=== PATIENT | female | born 1950 | race Caucasian/White ===

== ENCOUNTER 2017-11-19 08:22 | Emergency (ER) | payer MEDICARE, OTHER ==
[~2017-11-19] VITALS: Ht 157.5 cm; Wt 65.8 kg
--- OUTSIDE RECORDS SUMMARY | ~2017-11-19 | XMS | Clinical Summary ---
Demographics + + + | Address | [address] | | | [place] [address] | + + + | Home Phone | | + + + | Preferred Language | Unknown | + + + | Marital Status | | + + + | Confucianist Affiliation | 1061 | + + + | Race | Unknown | + + + | Ethnic Group | Unknown | + + + Author + + + | Author | [facility] | | | and [place] | + + + | Organization | [facility] | | | and [place] | + + + | Address | Unknown | + + + | Phone | Unavailable | + + + Support + + + + + | Name | Relationship | Address | Phone | + + + + + | Joon Deutsch | ECON | [address] | | | | | [place] | | | | | [address] | | + + + + + Care Team Providers + +------+ + | Care Neurodiagnostic Tech Name | Role | Phone | + +------+ + | Kevin Pappas MD | PP | | + +------+ + Allergies No Known Allergies Current Medications + + +-------+---------+------+------+-------+ | Prescription | Sig. | Disp. | Refills | Star | End | Statu | | | | | | t | Date | s | | | | | | Date | | | + + +-------+---------+------+------+-------+ | | Take 20-12.5 mg by | | | 12/02 | | Activ | | olmesartan-hydrochlo | mouth Daily. | | | 07/21 | | e | | rothiazide (BENICAR | | | | 12 | | | | HCT) 20-12.5 MG per | | | | | | | | tablet | | | | | | | + + +-------+---------+------+------+-------+ | verapamil (VERELAN | Take 180 mg by mouth | | | 12/02 | | Activ | | PM) 180 MG 24 hr | Daily. | | | 07/21 | | e | | capsule | | | | 12 | | | + + +-------+---------+------+------+-------+ | aspirin (ASPIRIN | Take 81 mg by mouth | | | 12/02 | | Activ | | ADULT LOW STRENGTH) | Daily. | | | 07/21 | | e | | 81 MG EC tablet | | | | 12 | | | + + +-------+---------+------+------+-------+ | levothyroxine | Take 50 mcg by mouth | | | 12/02 | | Activ | | (LEVOTHROID) 50 mcg | Daily. | | | 07/21 | | e | | tablet | | | | 12 | | | + + +-------+---------+------+------+-------+ Active Problems + + + | Problem | Noted Date | + + + | Carpal tunnel syndrome, bilateral | 07/01/2013 | + + + Social History + +-------+ +--------+------+ | Tobacco Use | Types | Packs/Day | Years | Date | | | | | Used | | + +-------+ +--------+------+ | Never Smoker | | | | | + +-------+ +--------+------+ + + + | Sex Assigned at | Date Recorded | | | | + + + | Not on file | | + + + Last Filed Vital Signs + + + + | Vital Sign | Reading | Time Taken | + + + + | Blood Pressure | 167/83 | 07/01/2013802 PDT | + + + + | Pulse | 67 | 07/01/2013802 PDT | + + + + | Temperature | - | - | + + + + | Respiratory Rate | - | - | + + + + | Oxygen Saturation | - | - | + + + + | Inhaled Oxygen | - | - | | Concentration | | | + + + + | Weight | 63.5 kg (140 lb) | 07/01/2013802 PDT | + + + + | Height | 157.5 cm (5' 2") | 07/01/2013802 PDT | + + + + | Body Mass Index | 25.61 | 07/01/2013802 PDT | + + + + Plan of Treatment + + + + + | Health Maintenance | Due Date | Last Done | Comments | + + + + + | Vaccine: | | | | | Dtap/Tdap/Td (1 - | 1 | | | | Tdap) | | | | + + + + + | Vaccine: | | | | | Pneumococcal 65+ | 7 | | | | Low/Medium Risk (1 | | | | | of 2 - PCV13) | | | | + + + + + | Vaccine: Influenza | | | | | (#1) | 8 | | | + + + + + Results Not on filefrom Last 3 Months Insurance + +--------+ +--------+ +---------+ | Payer | Benefi | Subscriber | Type | Phone | Address | | | t Plan | ID | | | | | | / | | | | | | | Group | | | | | + +--------+ +--------+ +---------+ | [employer] | SAIF | [id number] | [place] | [phone] | | | | WC | | [phone] | [phone] | | + +--------+ +--------+ +---------+ + +--------+ +--------+ + + | Guarantor Name | Accoun | Relation to | Date | Phone | Billing Address | | | t Type | Patient | of | | | | | | | | | | + +--------+ +--------+ + + | KATALINA DEUTSCH | Worker | Self | [birth year] | Work: | [address] | | | s Comp | | 1949 | [phone] | [place] | | | | | | [address] Home: | [address] | | | | | | | | | | | | | [phone] | | | | | | | [address] | | + +--------+ +--------+ + + | KATALINA DEUTSCH | Person | Self | [birth year] | Work: | [address] | | | al/[place] | | 1949 | [phone] | [place] | | | [place] | | | [address] Home: | [address] | | | | | | | | | | | | [phone] | | | | | | | [address] | | + +--------+ +--------+ + +
--- OUTSIDE RECORDS SUMMARY | ~2017-11-19 | XMS | Clinical Summary ---
Demographics + + + | Address | [address] | | | [place] [address] | + + + | Home Phone | | + + + | Preferred Language | Unknown | + + + | Marital Status | | + + + | Restorationism Affiliation | Unknown | + + + | Race | Unknown | + + + | Ethnic Group | Unknown | + + + Author + + + | Author | [facility] | + + + | Organization | [facility] | + + + | Address | Unknown | + + + | Phone | Unavailable | + + + Support + + +---------+ + | Name | Relationship | Address | Phone | + + +---------+ + | Dennis Deutsch | ECON | Unknown | | + + +---------+ + Care Team Providers + +------+ + | Care Customer Project Manager Name | Role | Phone | + +------+ + | Cristy Ibarra PA-C | PP | | + +------+ + Allergies Not on File Current Medications Not on file Active Problems Not on file Encounters +--------+ + + + + | Date | Type | Specialty | Care Team | Description | +--------+ + + + + | 09/25/ | Documentati | | León Larkin, | | | 2017 | on Only | | MD | | +--------+ + + + + from Last 3 Months Social History + +-------+ +--------+------+ | Tobacco Use | Types | Packs/Day | Years | Date | | | | | Used | | + +-------+ +--------+------+ | Never Assessed | | | | | + +-------+ +--------+------+ + + + | Sex Assigned at | Date Recorded | | | | + + + | Not on file | | + + + Plan of Treatment +--------+ + + + + | Date | Type | Specialty | Care Team | Description | +--------+ + + + + | 01/31/ | Initial | | León Larkin, | | | 2018 | consult | | MD [address] | | | | | | [place], | | | | | | [place] [address] | | | | | | [phone] | | | | | | | | +--------+ + + + + + + + + + | Health Maintenance | Due Date | Last Done | Comments | + + + + + | Vaccine: | | | | | Dtap/Tdap/Td (1 - | 1 | | | | Tdap) | | | | + + + + + | Breast Cancer | | | | | Screening | 2 | | | | (Mammogram) | | | | + + + + + | Colon Cancer | | | | | Screening | 2 | | | | (Colonoscopy) | | | | + + + + + | DEXA SCAN SCREENING | | | | | | 7 | | | + + + + [...] filefrom Last 3 Months Insurance + +--------+ +------+-------+ + | Payer | Benefi | Subscriber | Type | Phone | Address | | | t Plan | ID | | | | | | / | | | | | | | Group | | | | | + +--------+ +------+-------+ + | MEDICARE | MEDICA | [id number] | | | [address] | | | RE | | | | [place] [phone] | | | IP-OP | | | | | + +--------+ +------+-------+ + | O[employer] HE[employer] PLAN | ODS | [id number] | | | | | | HEALTH | | | | | | | PLAN | | | | | + +--------+ +------+-------+ + + +--------+ +--------+ + + | Guarantor Name | Accoun | Relation to | Date | Phone | Billing Address | | | t Type | Patient | of | | | | | | | | | | + +--------+ +--------+ + + | KATALINA DEUTSCH | Person | Self | [birth year] | Home: | [address] | | | [place] | | 2 | [phone] | [place] | | | [place] | | | [phone] | [phone] | + +--------+ +--------+ + +"
--- OUTSIDE RECORDS SUMMARY | ~2017-11-19 | XMS | Encounter Summary ---
Demographics + + + | Address | [address] | | | [place] [address] | + + + | Home Phone | | + + + | Preferred Language | Unknown | + + + | Marital Status | | + + + | Congregational Affiliation | Unknown | + + + | Race | Unknown | + + + | Ethnic Group | Unknown | + + + Author + + + | Author | [facility] | + + + | Organization | [facility] | + + + | Address | Unknown | + + + | Phone | Unavailable | + + + Support + + +---------+ + | Name | Relationship | Address | Phone | + + +---------+ + | Dennis Deutsch | ECON | Unknown | | + + +---------+ + Care Team Providers + +------+ + | Care Geochemical Manager Name | Role | Phone | + +------+ + | Cristy Ibarra PA-C | PCP | | + +------+ + Encounter Details +--------+ + + + + | Date | Type | Department | Care Team | Description | +--------+ + + + + | 09/25/ | Documentati | [facility] | León Larkin, | | | 2018 | on Only | [place] [facility] | [address] | | | | | [address] | [place], | | | | | [place] | [place] [address] | | | | | [address] | [phone] | | | | | [phone] | | | +--------+ + + + + Social History + +-------+ [...] on file | | + + + as of this encounter Plan of Treatment +--------+ + + + + | Date | Type | Specialty | Care Team | Description | +--------+ + + + + | 01/31/ | Initial | Cardiology | León Larkin, | | | 2017 | consult | | MD [address] | | | | | | [place], | | | | | | [place] [address] | | | | | | [phone] | | | | | | | | +--------+ + + + + as of this encounter Visit Diagnoses Not on filein this encounter"
--- OUTSIDE RECORDS SUMMARY | ~2017-11-19 | XMS | Encounter Summary ---
Demographics + + + | Address | [address] | | | [place] [address] | + + + | Home Phone | | + + + | Preferred Language | Unknown | + + + | Marital Status | | + + + | Jainism Affiliation | Unknown | + + + | Race | Unknown | + + + | Ethnic Group | Unknown | + + + Author + + + | Author | [facility] | + + + | Organization | [facility] | + + + | Address | Unknown | + + + | Phone | Unavailable | + + + Support + + +---------+ + | Name | Relationship | Address | Phone | + + +---------+ + | Dennis Deutsch | ECON | Unknown | | + + +---------+ + Care Team Providers + +------+ + | Care Laboratory Monitor Name | Role | Phone | + [...] [place], | | | | | [place] | [place] [address] | | | | | [address] | [phone] | | | | | [phone] | | | +--------+ + + + [...] | | | | | | [place] [address] | | | | | | [phone] | | | | | | | | +--------+ + + + + as of this encounter Visit Diagnoses Not on filein this encounter"
--- OUTSIDE RECORDS SUMMARY | ~2017-11-19 | XMS | Clinical Summary ---
Demographics + + + | Address | [address] | | | [place] [address] | + + + | Home Phone | | + + + | Preferred Language | Unknown | + + + | Marital Status | | + + + | Jew Affiliation | Unknown | + + + | Race | Unknown | + + + | Ethnic Group | Unknown | + + + Author + + + | Author | [facility] | + + + | Organization | [facility] | + + + | Address | Unknown | + + + | Phone | Unavailable | + + + Support + + +---------+ + | Name | Relationship | Address | Phone | + + +---------+ + | Denins Deutsch | ECON | Unknown | | + + +---------+ + Care Team Providers + +------+ + | Care Server Programmer Name | Role | Phone | + [...] | | | | | | [place] [address] | | | | | | [phone] | | | | | | | [...] +------+-------+ + | MEDICARE | MEDICA | [id number] | | | [address] | | | RE | | | | [place] [phone] | | | IP-OP | | | | | + +--------+ +------+-------+ + | ODS HEALTH PLAN | ODS | [id number] | | | | | | HEALTH [...] | | al/[place] | | 2 | [phone] | [place] | | | [place] | | | [address] | [phone] | + +--------+ +--------+ + +"
--- OUTSIDE RECORDS SUMMARY | ~2017-11-19 | XMS | Clinical Summary ---
Demographics + + + | Address | [address] | | | [place] [address] | + + + | Home Phone | | + + + | Preferred Language | Unknown | + + + | Marital Status | | + + + | Roman Catholic Affiliation | 1061 | + + + | Race | Unknown | + + + | Ethnic Group | Unknown | + + + Author + + + | Author | [facility] | | | and [place] | + + + | Organization | [facility] | | | and [place] | [...] [place] | | | | | [address] | | + + + + + Care Team Providers + +------+ + | Care Professional Employer Consultant Name | Role | Phone | + [...] | | + +--------+ +--------+ +---------+ | [employer] | SAIF | [id number] | [place] | [phone] | | | | WC | | [...] | s Comp | | 1949 | [phone] | [place] | | | | | | [address] Home: | [address] | | | | | | | | | | | | | [phone] | | | | | | | [address] | | + +--------+ +--------+ + + | KATALINA DEUTSCH | Person | Self | [birth year] | Work: | [address] | | | [place] | | 1949 | [phone] | [place] | | | [place] | | | [address] Home: | [address] | | | | | | | | | | | | | [phone] | | | | | | | [address] | | + +--------+ +--------+ + +
[~2017-11-19 08:22] MED LIST: ALREX5 ML OPTH; HYDROCHLOROTH12.5 MG PO; LEVOTHYROXINE75 MCG PO; LOSARTAN POTAS100 MG PO; VERAPAMIL ER180 MG PO; ZOLPIDEM TARTRAT5 MG PO
[2017-11-19] MEDS ORDERED: ASPIR 8181 MG PO (08:33)
[2017-11-19] MEDS ORDERED: RESTASIS1 DROP OD (08:33)
[2017-11-19] MEDS ORDERED: PREDNISONE20 MG PO (09:25)
== END 2017-11-19 09:45 | disposition home or self-care (01) ==
LOC: ED 08:22
DX: T63.441A Toxic effect of venom of bees, accidental (unintentional), initial encounter (principal); I10 Essential (primary) hypertension; Z79.82 Long term (current) use of aspirin; Z79.899 Other long term (current) drug therapy
CPT/HCPCS: 99282; J7512

== ENCOUNTER 2020-07-24 06:30 | Day surgery (SDC) | payer MEDICARE, OTHER ==
[~2020-07-24] VITALS: Ht 157.5 cm; Wt 63.6 kg
[~2020-07-24 06:30] MED LIST changes: +ASPIR 8181 MG PO; +PREDNISONE20 MG PO; +RESTASIS1 DROP OD
--- NOTE | 2020-07-24 08:18 | NUR ---
07/24/20 0818 Aishwarya Ramos 0815- PT ARRIVES TO PACU NONAROUSABLE TO NOXIOUS STIMULI WITH AN OPA IN PLACE. RESP EVEN AND UNLABORED. OXYGEN SAT HIGH 90'S TO 100% ON 8L VIA MASK. 0816- PT RESPONSIVE ON HER OWN. JOVANI SANON, RN INSTRUCTS PT TO OPEN HER MOUTH AND REMOVES THE OPA.
[2020-07-24] MEDS ORDERED: IBUPROFEN600 MG PO (08:35)
[2020-07-24] MEDS ORDERED: OXYCODON-ACETA1 EAC2 PO (08:35)
[2020-07-24] MEDS ORDERED: ACETAMINOPHEN500 MG PO (08:35)
--- NOTE | 2020-07-25 15:12 | EKG ---
[facility] [address] [facility] [place], [place] [address] Signed Normal sinus rhythm Normal ECG No previous ECGs available Confirmed by GUY LOVE DO ([id number]) on 07/25/2020 3:12:41 PM Electronically Signed By: GUY LOVE DO 07/25/20 1512 PATIENT NAME: KATALINA MARTIN Electrocardiogram DATE OF : 54 PHYSICIAN: GUY LOVE DO REPORT #: [id number] REPORT IS CONFIDENTIAL AND NOT TO BE RELEASED WITHOUT AUTHORIZATION
--- NOTE | 2020-07-26 12:21 | OR ---
[facility] [address] [place], [place] [address] Signed DATE OF OPERATION: 07/24/2020 SURGEON: Martha Collins MD PREOPERATIVE DIAGNOSIS: Recurrent right middle finger distal digital mucous retention cyst. POSTOPERATIVE DIAGNOSIS AND PROCEDURE: 1. Operative excision and ligation of stock of digital mucous cyst. 2. Rongeur excision of bony exostosis. 3. Application of fibrin glue. ANESTHESIA: Local with monitored anesthesia care, finger block of 0.25% Marcaine without epinephrine. INDICATION: This 70-year-old white woman is a patient of Dr. Andres Falk, who is noted to have a digital mucous retention cyst. She has no nail deformity. The area was likely corresponding to the distal interphalangeal joint. She underwent excision in the office setting under local anesthesia, but did have some issues of healing problem and has had somewhat of a recurrence. She is admitted to undergo definitive excision to include ligation of the stalk as the lesion likely emanated from the joint rather than the nail matrix. The risks of bleeding, infection, recurrent disease and of course, other complications including cosmetic deformity were reviewed with her and she understands and wished to proceed. FINDINGS: The skin had healed up quite well overall, though one could see where the recurrent digital mucous cyst was. A flap was used to elevate skin over the underlying problem and the cyst was excised. The stalk identified, ligated with 5-0 Vicryl and minimal bony exostosis excised with a rongeur. Fibrin glue was applied to the area as well. The flap was closed without problem. DESCRIPTION OF PROCEDURE: The patient was brought to the operating room, given intravenous sedation with full cardiopulmonary monitoring. The right hand including the middle finger was prepared with a Betadine-based solution. Preoperative antibiotic Ancef was given. A digital block was undertaken bilaterally in the midportion of the finger with 0.25% Marcaine without epinephrine. The finger was exsanguinated with a quarter-inch Esther up to and Electronically Signed By: MARTHA COLLINS MD 07/26/20 1221 PATIENT NAME: KATALINA MARTIN OPERATIVE REPORT DATE OF : 54 REPORT #: [id number] PHYSICIAN: MARTHA COLLINS MD PCP: ANDRES FALK MD REPORT IS CONFIDENTIAL AND NOT TO BE RELEASED WITHOUT AUTHORIZATION [facility] [address] [place] [id number] Signed beyond the middle joint and an additional segment of [place] used to apply tourniquet. The exsanguinating [place] was removed. A hockey-stick like flap was elevated on the radial side of the distal phalanx and the flap elevated sharply with a #15 blade. The underlying retention cyst was identified and dissected free circumferentially mindful of the lateral tendon inserts. The stalk was identified and was ligated with 5-0 Vicryl suture and transected. Palpation revealed some bony exostosis of the area, which were excised with rongeurs, mindful of position of the lateral tendon slips and avoid any injury to them. A small amount of electrocautery was used for venous bleeding within bone material. Tisseel (fibrin glue) was applied to the area. The flap was then secured with three separate interrupted 4-0 nylon suture. A Xeroform dressing was applied to the operative site and the tourniquet was removed showing no sign of bleeding. A tube gauze was applied as a splint and dressing. The patient was allowed to emerge from sedation, taken to the recovery room in good condition having suffered no complication. Sponge, needle, and instrument counts were reported as correct x3. Martha Collins MD /JAMESL /[id number] cc: Andres Falk MD Copies: ANDRES FALK MD ~ Electronically Signed By: MARTHA COLLINS MD 07/26/20 1221 PATIENT NAME: KATALINA MARTIN OPERATIVE REPORT DATE OF : 54 REPORT #: [id number] PHYSICIAN: MARTHA COLLINS MD PCP: ANDRES FALK MD REPORT IS CONFIDENTIAL AND NOT TO BE RELEASED WITHOUT AUTHORIZATION
== END 2020-07-24 09:05 | disposition home or self-care (01) ==
LOC: DS 06:30 → OPS 06:30
PROVIDERS: ATTEND Surgery
PROC: 0LB70ZZ Excision of Right Hand Tendon, Open Approach (ICD-10-PCS; principal; 2020-07-24 06:45)
DX: M25.841 Other specified joint disorders, right hand (principal); I10 Essential (primary) hypertension; E03.9 Hypothyroidism, unspecified; G89.29 Other chronic pain; M19.90 Unspecified osteoarthritis, unspecified site; M54.9 Dorsalgia, unspecified; Z79.890 Hormone replacement therapy; Z79.899 Other long term (current) drug therapy; Z20.822 Contact with and (suspected) exposure to COVID-19
CPT/HCPCS: 01830; 93005; 93010; J0690; J1100; J1885; J2250; J2405; J2704; J2765; J3010; J7121

== ENCOUNTER 2024-08-19 07:45 | Day surgery (SDC) | payer MEDICARE, OTHER ==
[~2024-08-19] VITALS: Ht 157.5 cm; Wt 63.6 kg
[~2024-08-19 07:45] MED LIST changes: +ACETAMINOPHEN500 MG PO; +CALCIUM 600-VI1 EAC3 PO; +CEFAZOLIN SODIUM 2 GM/20 ML SYR IV SCH; +CURCUMIN PHYTO500 MG PO; +FISH OIL 1,001000 MG PO; +IBLOOD GLUCOSE TEST STRIP 1 EA TEST VI PRN; +IBUPROFEN600 MG PO; +KETOROLAC TROMETHAMINE 30 MG/ML VIAL ONE; +LACTATED RINGER'S 1,000 ML IV SCH; +LIDOCAINE HCL 1% 5 ML SDV INJ ONE; +MAGNESIUM COMP300 MG PO; +MULTIVITAMIN1 EACH PO; +OXYCODON-ACETA1 EAC2 PO; +RESTASIS MULTI5.5 ML OU; -RESTASIS1 DROP OD; +RESTASIS1 DROP OU
[2024-08-19 08:07] VITALS: BP 141/60
[2024-08-19] MEDS ORDERED: fentaNYL citrate 100 MCG/2 ML VIAL ONE (12:15)
[2024-08-19] MEDS ORDERED: propofoL 200 MG/20 ML VIAL ONE (12:15)
[2024-08-19] MEDS ORDERED: DEXAMETHASONE SOD PHOS 4 MG/ML VIAL ONE (12:15)
[2024-08-19] MEDS ORDERED: LIDOCAINE HCL 2% 5 ML SDV ONE (12:15)
[2024-08-19] MEDS ORDERED: ondansetron HCL 4 MG/2 ML VIAL ONE (12:15)
[2024-08-19] MEDS ORDERED: KETOROLAC TROMETHAMINE 30 MG/ML VIAL ONE (12:15)
[2024-08-19] MEDS ORDERED: HYDROCODONE/ACETA 5/325 TAB PO PRN (12:15)
[2024-08-19] MEDS ORDERED: ACETAMINOPHEN 1,000 MG/100 ML VIAL ONE (12:15)
[2024-08-19] MEDS ORDERED: ondansetron HCL 4 MG/2 ML VIAL IV PRN (12:45)
[2024-08-19] MEDS ORDERED: CELECOXIB200 MG PO (12:45)
[2024-08-19] MEDS ORDERED: IBLOOD GLUCOSE TEST STRIP 1 EA TEST VI PRN (12:45)
[2024-08-19] MEDS ORDERED: HYDROCODON-ACE1 EA10 PO (12:45)
[2024-08-19] MEDS ORDERED: PROCHLORPERAZINE EDISYLATE 10 MG/2 ML VIAL IV PRN (12:45)
[2024-08-19] MEDS ORDERED: HYDROmorphone HCL 1 MG/ML SYR IV PRN (12:45)
[2024-08-19] MEDS ORDERED: fentaNYL citrate 50 MCG/ML SDV IV PRN (12:45)
[2024-08-19] MEDS ORDERED: NALOXONE HCL 0.4 MG SYR IV PRN (12:45)
[2024-08-19] MEDS ORDERED: droPERidol 5 MG/2 ML VIAL IV PRN (12:45)
[2024-08-19 13:15] VITALS: BP 137/67
[2024-08-19 14:15] VITALS: BP 150/71
[2024-08-19] MEDS ORDERED: SEVOFLURANE 250 ML BTL INH ONE (14:23)
[2024-08-19] MEDS ORDERED: CELECOXIB 200 MG CAP PO SCH (17:00)
--- NOTE | 2024-08-20 04:50 | OR ---
[facility] [address] [place], [place] [address] Signed DATE OF OPERATION: 08/19/2024 SURGEON: Miah Grubbs MD PREOPERATIVE DIAGNOSES: Medial meniscus tear, lateral meniscus tear, right knee. POSTOPERATIVE DIAGNOSES: Medial meniscus tear, lateral meniscus tear, right knee. PROCEDURE PERFORMED: Right knee arthroscopy with partial medial and lateral meniscectomy. INSTRUCTIONAL SERVICES LIBRARIAN: Gabbi Torres PA-C. ANESTHESIA: General. BLOOD LOSS: Minimal. BRIEF HISTORY: Katalina is a 74-year-old female with pain and catching in her knee and nonresponsive to nonoperative treatment. Risks and benefits of operative treatment were discussed with her and she elected to proceed. Once consent was obtained she was taken to the operating room. After adequate anesthesia she was placed on the operating table. All downside pressure points were well padded. Left leg was flexed, abducted and externally rotated on a well-padded leg allen. Right was placed in a leg allen. No tourniquet. The leg was then prepped and draped in a standard sterile fashion. Three portals were injected with 0.25% Marcaine with epinephrine. Standard inferolateral and superolateral portals were then established. Scope was introduced. 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 Trochlea was intact. Medial and lateral gutters were intact. Medial and lateral compartment showed no significant chondromalacia. There was a horizontal tear in the medial meniscus at the posteromedial corner. There was a large complex tear of the lateral meniscus. DESCRIPTION OF OPERATION: Electronically Signed By: MIAH GRUBBS MD 08/20/24 0450 PATIENT NAME: KATALINA MARTIN OPERATIVE REPORT DATE OF : 54 REPORT #: [id number] PHYSICIAN: MIAH GRUBBS MD PCP: PATRICIA KELLEY MD REPORT IS CONFIDENTIAL AND NOT TO BE RELEASED WITHOUT AUTHORIZATION [facility] [address] [place], [place] [address] Signed Standard inferior medial portal was made after localization using a spinal needle. The straight and curved biters were used to trim the meniscus back to a stable rim on the lateral and medial sides. All debris was evacuated with a shaver. The menisci were feathered and transitioned. Scope was then withdrawn. Portals were closed with 3-0 nylon and the knee was injected with 60 mg Toradol. The wounds were dressed with Adaptic, ABD, and Ulysses wrap. She tolerated the procedure well. All sponge, needle, and instrument counts were correct. Miah Grubbs MD BA/JAMESL /[id number] Copies: ~ Electronically Signed By: MIAH GRUBBS MD 08/20/24 0450 PATIENT NAME: KATALINA MARTIN OPERATIVE REPORT DATE OF : 54 REPORT #: [id number] PHYSICIAN: MIAH GRUBBS MD PCP: PATRICIA KEL[place] MD REPORT IS CONFIDENTIAL AND NOT TO BE RELEASED WITHOUT AUTHORIZATION
== END 2024-08-19 14:25 | disposition home or self-care (01) ==
LOC: DS 07:45
PROVIDERS: ATTEND Specialist
PROC: 0SBC4ZZ Excision of Right Knee Joint, Percutaneous Endoscopic Approach (ICD-10-PCS; 2024-08-19)
PROC: 0SBC4ZZ Excision of Right Knee Joint, Percutaneous Endoscopic Approach (ICD-10-PCS; principal; 2024-08-19 12:50)
DX: S83.281A Other tear of lateral meniscus, current injury, right knee, initial encounter (principal); S83.241A Other tear of medial meniscus, current injury, right knee, initial encounter; X58.XXXA Exposure to other specified factors, initial encounter; I10 Essential (primary) hypertension; E03.9 Hypothyroidism, unspecified; E78.5 Hyperlipidemia, unspecified; Z88.8 Allergy status to other drugs, medicaments and biological substances; Z79.899 Other long term (current) drug therapy
CPT/HCPCS: 01400; J0131; J0690; J1100; J1885; J2003; J2405; J2704; J3010; J7121